=== PATIENT | female | born 1960 | race Caucasian/White ===

== ENCOUNTER 2021-03-27 08:24 | Outpatient (CLI) | payer BC | END 2021-03-27 08:25 | disposition home or self-care (01) | LOC: CSHMAMMO 08:24 | PROVIDERS: ATTEND Family Medicine | DX: Z12.31 Encounter for screening mammogram for malignant neoplasm of breast (principal) | CPT/HCPCS: 77063; 77067 ==

== ENCOUNTER 2022-04-03 14:47 | Outpatient (CLI) | payer BC | END 2022-04-03 14:48 | disposition home or self-care (01) | LOC: CSHMAMMO 14:47 | PROVIDERS: ATTEND Family Medicine | DX: Z12.31 Encounter for screening mammogram for malignant neoplasm of breast (principal) | CPT/HCPCS: 77063; 77067 ==